=== PATIENT | male | born 1965 | race Caucasian/White ===

== ENCOUNTER 2018-03-05 00:32 | Emergency (ER) | payer BC ==
[2018-03-05] MEDS ORDERED: Dicyclomine 20 MG/2 ML SDV IM ONE (01:09)
[2018-03-05] MEDS ORDERED: Sodium Chloride 0.9% 1,000 ML IV ONE ×2 (01:09→02:49)
[2018-03-05] MEDS ORDERED: Ondansetron 4 MG/2 ML SDV IVPUSH ONE (01:09)
--- NOTE | 2018-03-05 01:11 | EDM.PDOC ---
ED HPI GENERAL MEDICAL PROBLEM - General Chief Complaint: Gastrointestinal Problem Stated Complaint: ABDOMINAL PAIN DIARRHEA Time Seen by Provider: 03/05/18 00:58 Source of Information: Reports: Patient, Family (Sister) History Limitations: Reports: No Limitations - History of Present Illness INITIAL COMMENTS - FREE TEXT/NARRATIVE: The patient states that he had chills without fever Friday night, 03/02/2018. He then developed watery diarrhea Friday morning, 03/03/2018, followed by a poor appetite and abdominal cramps yesterday, 03/03/2018. He developed nausea this evening, and while he states that he has not vomited, he has been dry heaving. No recent fever or urinary symptoms. The patient states that he took a dose of Pepto-Bismol and 2 tablets of Imodium yesterday morning, 03/03/2018, but none since. He states that it helped with his diarrhea a bit. No similarly ill contacts. No recent spoiled food. No recent antibiotics. No recent travel. No prior similar symptoms. The patient's PCP is Dr. Stephon Rojo. Abdomen Pain Score (Numeric/FACES): 6 - Related Data Allergies Allergy/AdvReac Type Severity Reaction Status Date / Time No Known Allergies Allergy Verified 03/05/18 00:41 Home Meds: Home Meds Cyanocobalamin (Vitamin B-12) [Vitamin B-12] 1,000 mcg PO DAILY 03/05/18 [ History] Levothyroxine [Synthroid] 88 mcg PO DAILY 03/05/18 [History] Lisinopril 10 mg PO DAILY 03/05/18 [History] Multivitamin [Multivitamins] 1 cap PO DAILY 03/05/18 [History] Ondansetron [Zofran ODT] 1 tab PO Q8H PRN #10 tab.dis 03/05/18 [Rx] Pantoprazole Sodium 40 mg PO DAILY 03/05/18 [History] Pravastatin Sodium 20 mg PO DAILY 03/05/18 [History] Ubidecarenone [Co Q-10] 200 mg PO DAILY 03/05/18 [History] Past Medical History HEENT History: Reports: Cataract Cardiovascular History: Reports: High Cholesterol, Hypertension Gastrointestinal History: Reports: GERD Endocrine/Metabolic History: Reports: Hypothyroidism - Past Surgical History HEENT Surgical History: Reports: Cataract Surgery GI Surgical History: Reports: Colonoscopy, EGD Social & Family History - Tobacco Use Smoking Status *Q: Never Smoker - Alcohol Use Alcohol Use History: No - Recreational Drug Use Recreational Drug Use: No - Living Situation & Occupation Living situation: Reports: Single, with Family Occupation: Employed (Self-employed) ED ROS GENERAL - Review of Systems Review Of Systems: ROS reveals no pertinent complaints other than HPI. ED EXAM, GI/ABD - Physical Exam Exam: See Below Exam Limited By: No Limitations General Appearance: Alert, WD/WN, Mild Distress (Looks uncomfortable. Occasional dry heaves.) Eyes: Bilateral: Normal Appearance, EOMI Ears: Normal External Exam, Hearing Grossly Normal Nose: Normal Inspection, No Blood Throat/Mouth: Normal Inspection, Normal Lips, Normal Voice, No Airway Compromise Head: Atraumatic, Normocephalic Neck: Normal Inspection, Full Range of Motion Respiratory/Chest: No Respiratory Distress, Lungs Clear, Normal Breath Sounds, No Accessory Muscle Use Cardiovascular: Normal Peripheral Pulses, Regular Rate, Rhythm, No Gallop, No JVD, No Murmur, No Rub GI/Abdominal Exam: Normal Bowel Sounds (Neither hyperactive nor hypoactive), Soft, Non-Tender, No Organomegaly, No Distention, No Abnormal Bruit, No Mass (Male) Exam: Deferred Rectal (Males) Exam: Deferred Extremities: Normal Inspection, Normal Range of Motion, No Pedal Edema, Normal Capillary Refill Neurological: Alert, Oriented, Normal Cognition, No Motor/Sensory Deficits Psychiatric: Normal Affect Skin Exam: Warm, Dry, Intact, Normal Color, No Rash Course - Vital Signs Last Recorded V/S: Last Vital Signs Temp 36.3 C 03/05/18 00:41 Pulse 94 03/05/18 00:41 Resp 16 03/05/18 00:41 BP 127/81 03/05/18 00:41 Pulse Ox 96 03/05/18 00:41 Orthostatic Blood Pressure [ 115/72 Standing] Orthostatic Blood Pressure [ 116/72 Sitting] Orthostatic Blood Pressure [ 105/67 Supine] - Orders/Labs/Meds Orders: Active Orders 24 hr Category Date Time Status Orthostatic Vital Signs [RC] STAT Care 03/05/18 01:09 Active Orthostatic Vital Signs [RC] STAT Care 03/05/18 02:25 Active CULTURE STOOL + SHIGATOX [RM] Stat Lab 03/05/18 01:11 Ordered NOROVIRUS GROUP 1 & 2 RT-PCR Stat Lab 03/05/18 01:12 Ordered ROTAVIRUS DIRECT ANTIGEN STOOL [OP] Stat Lab 03/05/18 01:11 Ordered WBC, STOOL [OP] Stat Lab 03/05/18 01:11 Ordered Labs: Laboratory Tests 03/05/18 03/05/18 03/05/18 Range/Units 01:15 01:15 01:25 WBC 15.88 H (4.23-9.07) K/mm3 RBC 5.12 (4.63-6.08) M/mm3 Hgb 16.1 (13.7-17.5) gm/L Hct 44.7 (40.1-51.0) % MCV 87.3 (79.0-92.2) fl MCH 31.4 (25.7-32.2) pg MCHC 36.0 H (32.2-35.5) g/dl RDW Std Deviation 38.8 (35.1-43.9) fL Plt Count 195 (163-337) K/mm3 MPV 9.4 (9.4-12.3) fl Neutrophils % (Manual) 80 H (40-60) % Band Neutrophils % 1 (0-10) % Lymphocytes % (Manual) 11 L (20-40) % Atypical Lymphs % 0 % Monocytes % (Manual) 5 (2-10) % Eosinophils % (Manual) 3 (0.8-7.0) % Basophils % (Manual) 0 L (0.2-1.2) Platelet Estimate Adequate RBC Morph Comment Normal Sodium 138 (136-145) mEq/L Potassium 3.6 (3.5-5.1) mEq/L Chloride 101 (98-107) mEq/L Carbon Dioxide 21 (21-32) mEq/L Anion Gap 19.6 H (5-15) BUN 16 (7-18) mg/dL Creatinine 1.1 (0.7-1.3) mg/dL Est Cr Clr Drug Dosing 88.78 mL/min Estimated GFR (MDRD) > 60 (>60) mL/min BUN/Creatinine Ratio 14.5 (14-18) Glucose 151 H (74-106) mg/dL Lactic Acid 1.1 (0.4-2.0) mmol/L Calcium 8.6 (8.5-10.1) mg/dL Magnesium 1.6 L (1.8-2.4) mg/dl Total Bilirubin 1.1 H (0.2-1.0) mg/dL AST 22 (15-37) U/L ALT 28 (16-63) U/L Alkaline Phosphatase 71 (46-116) U/L Total Protein 7.2 (6.4-8.2) g/dl Albumin 3.9 (3.4-5.0) g/dl Globulin 3.3 gm/dL Albumin/Globulin Ratio 1.2 (1-2) Lipase 180 (73-393) U/L Meds: Medications Discontinued Medications Generic Name Dose Route Start Last Admin Trade Name Freq PRN Reason Stop Dose Admin Dicyclomine HCl 20 mg 03/05/18 01:09 03/05/18 01:29 Bentyl IM 03/05/18 01:10 20 mg ONETIME ONE Administration Sodium Chloride 1,000 mls @ 999 mls/hr 03/05/18 01:09 03/05/18 01:26 Normal Saline IV 03/05/18 02:09 999 mls/hr ONETIME ONE Administration Magnesium Sulfate 2 gm/ Premix 50 mls @ 50 mls/hr 03/05/18 02:10 03/05/18 02: 17 IV 03/05/18 03:09 50 mls/hr ONETIME ONE Administration Sodium Chloride 1,000 mls @ 999 mls/hr 03/05/18 02:49 03/05/18 02:57 Normal Saline IV 03/05/18 03:49 999 mls/hr ONETIME ONE Administration Loperamide HCl 4 mg 03/05/18 02:49 03/05/18 02:57 Imodium PO 03/05/18 02:50 4 mg ONETIME STA Administration Ondansetron HCl 4 mg 03/05/18 01:09 03/05/18 01:27 Zofran IVPUSH 03/05/18 01:10 4 mg ONETIME ONE Administration - Re-Assessments/Exams Free Text/Narrative Re-Assessment/Exam: 03/05/18 01:10 The patient looks quite uncomfortable, and was retching during my interview. I have ordered IV fluid and Zofran, but until his nausea comes under control, I cannot give him loperamide. I have instead ordered 20 mg Bentyl IM to help with his abdominal cramps. 03/05/18 02:10 The patient's magnesium returned low at 1.6. I have ordered a 2 g Mg rider. 03/05/18 02:23 Orthostatics were not checked until after the patient had already received 782 mL NS. Nevertheless, he is considerably orthostatic. We will recheck orthostatics once he has finished 1 L IV fluid. 03/05/18 02:44 Following 1 L NS, the patient is no longer orthostatic. 03/05/18 02:50 Test results discussed with the patient. Although he is no longer orthostatic, he would like to receive a second liter of IV fluid. His nausea has improved following IV Zofran, therefore I will give him 4 mg loperamide. While the patient presented with a complaint of diarrhea, he has not been able to provide a stool sample while here, thus far. 03/05/18 03:57 The second liter of IV fluid has finished. The patient reports some continued abdominal cramps, but has still not been able to provide a stool sample. I will discharge him home with an e-prescription for Zofran, and a recommendation that he stay adequately hydrated and take [id number] loperamide, if needed. I would like him to follow-up with his PCP, Dr. Rojo, regarding his elevated blood glucose. At the very least, the patient has prediabetes, and needs further evaluation to make sure that he does not have diabetes. Departure - Departure Time of Disposition: 04:00 Disposition: Home, Self-Care 01 Condition: Fair Clinical Impression: Gastroenteritis, Hypomagnesemia, Hyperglycemia - Discharge Information Referrals: Stalin Rojo MD [Primary Care Provider] - Forms: ED Department Discharge Additional Instructions: You were seen in the emergency room for nausea, vomiting, diarrhea, and abdominal cramps. Workup in the ER included blood work and positional blood pressure checked. Unfortunately, you are not able to provide a stool sample for testing. The cause of your nausea, vomiting, diarrhea, and abdominal cramps is MOST LIKELY due to a virus. Unfortunately, there are no medicines to get rid of the virus - it will have to run its course. A prescription for the anti-nausea medicine the Zofran has been sent to the [facility] located in the [place] store. Dissolve one tablet of Zofran on your tongue up to every 8 hours, as needed for nausea/vomiting. Stay adequately hydrated. Gatorade or Powerade are best. You were started on the anti-diarrhea medicine Imodium (loperamide). This medicine is available [id number]. Take one tablet after each loose bowel movement, to a maximum of 8 tablets in a 24-hour period. Your workup found that your blood pressure dropped excessively between lying and standing, which resolved after you received IV fluid. Your magnesium level was found to be mildly low at 1.6. You were given IV magnesium in the ER. Your blood sugar was found to be elevated at 151. This indicates that you have a condition called prediabetes. You need further evaluation to make sure that you do not have diabetes. Please follow-up with Dr. Rojo in this regard. The remainder of your workup was unremarkable. If any other problems, please do not hesitate to return to the ER. - My Orders Last 24 Hours: My Active Orders 03/05/18 01:09 Orthostatic Vital Signs [RC] STAT 03/05/18 01:11 CULTURE STOOL + SHIGATOX [RM] Stat ROTAVIRUS DIRECT ANTIGEN STOOL [OP] Stat WBC, STOOL [OP] Stat 03/05/18 01:12 NOROVIRUS GROUP 1 & 2 RT-PCR Stat 03/05/18 02:25 Orthostatic Vital Signs [RC] STAT - Assessment/Plan Last 24 Hours: My Active Orders 03/05/18 01:09 Orthostatic Vital Signs [RC] STAT 03/05/18 01:11 CULTURE STOOL + SHIGATOX [RM] Stat ROTAVIRUS DIRECT ANTIGEN STOOL [OP] Stat WBC, STOOL [OP] Stat 03/05/18 01:12 NOROVIRUS GROUP 1 & 2 RT-PCR Stat 03/05/18 02:25 Orthostatic Vital Signs [RC] STAT
[2018-03-05] MEDS ORDERED: Magnesium Sulfate/Water 2 GM in Premix Bag 1 BAG IV ONE (02:10)
[2018-03-05] MEDS ORDERED: Loperamide 2 MG Cap PO STA (02:49)
== END 2018-03-05 04:16 | disposition home or self-care (01) ==
LOC: JD.ED 00:32
DX: K52.9 Noninfective gastroenteritis and colitis, unspecified (principal); E83.42 Hypomagnesemia; R73.9 Hyperglycemia, unspecified; E78.00 Pure hypercholesterolemia, unspecified; I10 Essential (primary) hypertension; E03.9 Hypothyroidism, unspecified; Z79.899 Other long term (current) drug therapy
CPT/HCPCS: 36415; 80053; 83605; 83690; 83735; 85025; 96361; 96365; 96372; 96375; 99284; A9270; J0500; J2405; J7040; J3475

== ENCOUNTER 2020-11-24 13:38 | Inpatient (IN) | payer BC ==
--- NOTE | 2020-11-24 14:06 | EDM.PDOC ---
ED HPI GENERAL MEDICAL PROBLEM - General Chief Complaint: Fever Stated Complaint: NAUSEA/HEADACHE/CHILLS/BODY ACHES Time Seen by Provider: 11/24/20 13:52 - History of Present Illness INITIAL COMMENTS - FREE TEXT/NARRATIVE: 55-year-old male presents the emergency room with fatigue nausea weight loss cough fever. Patient has had some nausea and some vomiting for the last 12 days. He has developed some abdominal discomfort associated with this. Nearly a week ago he developed a cough and fever. Patient states he is lost about 10 pounds during all this. The patient is not a smoker. He is not aware of any Covid exposure. Has not had any loss of taste or smell. However when he coughs he has radiating pain into his left lower quadrant. Patient does have some nausea at this time. He has a little bit of a headache but not bad. - Related Data Allergies Allergy/AdvReac Type Severity Reaction Status Date / Time No Known Allergies Allergy Verified 03/05/18 00:41 Home Meds: Home Meds Cyanocobalamin (Vitamin B-12) [Vitamin B-12] 1,000 mcg PO DAILY 03/05/18 [History] Levothyroxine [Synthroid] 88 mcg PO DAILY 03/05/18 [History] Lisinopril 10 mg PO DAILY 03/05/18 [History] Multivitamin [Multivitamins] 1 cap PO DAILY 03/05/18 [History] Ondansetron [Zofran ODT] 1 tab PO Q8H PRN #10 tab.dis 03/05/18 [Rx] Pantoprazole Sodium 40 mg PO DAILY 03/05/18 [History] Pravastatin Sodium 20 mg PO DAILY 03/05/18 [History] Ubidecarenone [Co Q-10] 200 mg PO DAILY 03/05/18 [History] Past Medical History HEENT History: Reports: Cataract Cardiovascular History: Reports: High Cholesterol, Hypertension Gastrointestinal History: Reports: GERD Endocrine/Metabolic History: Reports: Hypothyroidism - Past Surgical History HEENT Surgical History: Reports: Cataract Surgery GI Surgical History: Reports: Colonoscopy, EGD Social & Family History - Living Situation & Occupation Living situation: Reports: Single, with Family Occupation: Employed (Self-employed) ED ROS GENERAL - Review of Systems Review Of Systems: See Below Constitutional: Reports: Fever, Chills, Malaise, Weakness, Fatigue HEENT: Reports: No Symptoms Respiratory: Reports: Cough. Denies: Shortness of Breath, Wheezing, Sputum Cardiovascular: Reports: No Symptoms GI/Abdominal: Reports: Abdominal Pain, Nausea, Vomiting. Denies: Constipation, Diarrhea : Reports: No Symptoms Musculoskeletal: Reports: No Symptoms Skin: Reports: No Symptoms Neurological: Reports: No Symptoms Psychiatric: Reports: No Symptoms Hematologic/Lymphatic: Reports: No Symptoms Immunologic: Reports: No Symptoms ED EXAM, GENERAL - Physical Exam Exam: See Below Exam Limited By: No Limitations General Appearance: Alert, No Apparent Distress, Other (O2 saturation runs between 87 and 94% on room air) Eye Exam: Bilateral Eye: Normal Inspection, PERRL Ears: Normal External Exam, Normal Canal, Hearing Grossly Normal, Normal TMs Nose: Normal Inspection, Normal Mucosa, No Blood Throat/Mouth: Normal Inspection, Normal Lips, Normal Teeth, Normal Gums, Normal Oropharynx, Normal Voice, No Airway Compromise, Other (Semi-dry mucosa) Head: Atraumatic, Normocephalic Neck: Normal Inspection, Supple, Non-Tender, Full Range of Motion. No: Lymphadenopathy (L), Lymphadenopathy (R) Respiratory/Chest: No Respiratory Distress, Lungs Clear, Normal Breath Sounds Cardiovascular: Regular Rate, Rhythm, No Edema, No Murmur GI/Abdominal: Normal Bowel Sounds, Soft, Other (Comfort in the left lower quadrant almost like abdominal wall discomfort no rigidity rebound or guarding) Back Exam: Normal Inspection. No: CVA Tenderness (L), CVA Tenderness (R) Extremities: Normal Inspection, Normal Range of Motion, Non-Tender Neurological: Alert, Oriented, Normal Cognition Psychiatric: Normal Affect, Normal Mood Skin Exam: Warm, Dry, Intact Lymphatic: No Adenopathy Course - Vital Signs Last Recorded V/S: Last Vital Signs Temp 38.8 C H 11/24/20 13:50 Pulse 125 H 11/24/20 13:50 Resp 18 11/24/20 13:50 BP 111/71 11/24/20 13:50 Pulse Ox 92 L 11/24/20 13:50 - Orders/Labs/Meds Orders: Active Orders 24 hr Category Date Time Status ABG [RT Arterial Blood Gases, ABG] [RC] Click to Edit Care 11/24/20 14:20 Active CULTURE BLOOD [BC] Stat Lab 11/24/20 14:32 Received CULTURE BLOOD [BC] Stat Lab 11/24/20 14:41 Received Lactated Ringers [Ringers, Lactated] 1,000 ml Med 11/24/20 14:15 Active IV ASDIRECTED Blood Culture x2 Reflex Set [OM.PC] Stat Oth 11/24/20 14:07 Ordered Isolation [COMM] Routine Oth 11/24/20 14:09 Ordered Medication Orders Lactated Ringer's (Ringers, Lactated) 1,000 mls @ 150 mls/hr IV ASDIRECTED BERTHA Last Admin: 11/24/20 14:24 Dose: 150 mls/hr Documented by: ROS Labs: Laboratory Tests 11/24/20 11/24/20 11/24/20 Range/Units 14:08 14:12 14:12 WBC (4.23-9.07) K/mm3 RBC (4.63-6.08) M/mm3 Hgb (13.7-17.5) gm/dl Hct (40.1-51.0) % MCV (79.0-92.2) fl MCH (25.7-32.2) pg MCHC (32.2-35.5) g/dl RDW Std Deviation (35.1-43.9) fL Plt Count (163-337) K/mm3 MPV (9.4-12.3) fl Neut % (Auto) (34.0-67.9) % Lymph % (Auto) (21.8-53.1) % [place] % (Auto) (5.3-12.2) % Eos % (Auto) (0.8-7.0) Baso % (Auto) (0.1-1.2) % Neut # (Auto) (1.78-5.38) K/mm3 Lymph # (Auto) (1.32-3.57) K/mm3 [place] # (Auto) (0.30-0.82) K/mm3 Eos # (Auto) (0.04-0.54) K/mm3 Baso # (Auto) (0.01-0.08) K/mm3 Manual Slide Review PT 12.4 H (9.7-12.0) SECONDS INR 1.16 APTT 30.9 (21.7-31.4) SECONDS D-Dimer, Quantitative 1.51 H (0.19-0.50) mg/L Sodium 132 L (136-145) mEq/L Potassium 3.9 (3.5-5.1) mEq/L Chloride 97 L (98-107) mEq/L Carbon Dioxide 23 (21-32) mEq/L Anion Gap 15.9 H (5-15) BUN 22 H (7-18) mg/dL Creatinine 1.6 H (0.7-1.3) mg/dL Est Cr Clr Drug Dosing 58.95 mL/min Estimated GFR (MDRD) 45 (>60) mL/min BUN/Creatinine Ratio 13.8 L (14-18) Glucose 113 H (74-106) mg/dL Lactic Acid (0.4-2.0) mmol/L Calcium 9.0 (8.5-10.1) mg/dL Ferritin 614 H (26-388) ng/ml Total Bilirubin 1.0 (0.2-1.0) mg/dL AST 29 (15-37) U/L ALT 24 (16-63) U/L Alkaline Phosphatase 69 (46-116) U/L Lactate Dehydrogenase 237 H (85-227) U/L Troponin I < 0.017 (0.00-0.056) ng/mL C-Reactive Protein 16.2 H* (<1.0) mg/dL Total Protein 7.8 (6.4-8.2) g/dl Albumin 3.5 (3.4-5.0) g/dl Globulin 4.3 gm/dL Albumin/Globulin Ratio 0.8 L (1-2) Influenza Type A RNA (NEGATIVE) Influenza Type B RNA (NEGATIVE) SARS-CoV-2 RNA (JOSSY) (NEGATIVE) 11/24/20 11/24/20 11/24/20 Range/Units 14:12 14:22 14:28 WBC 9.58 H (4.23-9.07) K/mm3 RBC 4.84 (4.63-6.08) M/mm3 Hgb 15.0 (13.7-17.5) gm/dl Hct 43.2 (40.1-51.0) % MCV 89.3 (79.0-92.2) fl MCH 31.0 (25.7-32.2) pg MCHC 34.7 (32.2-35.5) g/dl RDW Std Deviation 37.1 (35.1-43.9) fL Plt Count 212 (163-337) K/mm3 MPV 9.6 (9.4-12.3) fl Neut % (Auto) 77.1 H (34.0-67.9) % Lymph % (Auto) 9.2 L (21.8-53.1) % [place] % (Auto) 13.3 H (5.3-12.2) % Eos % (Auto) 0 L (0.8-7.0) Baso % (Auto) 0.1 (0.1-1.2) % Neut # (Auto) 7.39 H (1.78-5.38) K/mm3 Lymph # (Auto) 0.88 L (1.32-3.57) K/mm3 [place] # (Auto) 1.27 H (0.30-0.82) K/mm3 Eos # (Auto) 0.00 L (0.04-0.54) K/mm3 Baso # (Auto) 0.01 (0.01-0.08) K/mm3 Manual Slide Review Abnormal smear PT (9.7-12.0) SECONDS INR APTT (21.7-31.4) SECONDS D-Dimer, Quantitative (0.19-0.50) mg/L Sodium (136-145) mEq/L Potassium (3.5-5.1) mEq/L Chloride (98-107) mEq/L Carbon Dioxide (21-32) mEq/L Anion Gap (5-15) BUN (7-18) mg/dL Creatinine (0.7-1.3) mg/dL Est Cr Clr Drug Dosing mL/min Estimated GFR (MDRD) (>60) mL/min BUN/Creatinine Ratio (14-18) Glucose (74-106) mg/dL Lactic Acid 1.4 (0.4-2.0) mmol/L Calcium (8.5-10.1) mg/dL Ferritin (26-388) ng/ml Total Bilirubin (0.2-1.0) mg/dL AST (15-37) U/L ALT (16-63) U/L Alkaline Phosphatase (46-116) U/L Lactate Dehydrogenase (85-227) U/L Troponin I (0.00-0.056) ng/mL C-Reactive Protein (<1.0) mg/dL Total Protein (6.4-8.2) g/dl Albumin (3.4-5.0) g/dl Globulin gm/dL Albumin/Globulin Ratio (1-2) Influenza Type A RNA Negative (NEGATIVE) Influenza Type B RNA Negative (NEGATIVE) SARS-CoV-2 RNA (JOSSY) Positive H (NEGATIVE) Meds: Medications Generic Name Dose Route Start Last Admin Trade Name Freq PRN Reason Stop Dose Admin Lactated Ringer's 1,000 mls @ 150 mls/hr 11/24/20 14:15 11/24/20 14:24 Ringers, Lactated IV 150 mls/hr ASDIRECTED BERTHA Administration Discontinued Medications Generic Name Dose Route Start Last Admin Trade Name Freq PRN Reason Stop Dose Admin Ondansetron HCl 4 mg 11/24/20 14:19 11/24/20 14:28 Zofran IVPUSH 11/24/20 14:20 4 mg ONETIME ONE Administration - Re-Assessments/Exams Free Text/Narrative Re-Assessment/Exam: 11/24/20 15:39 Patient's chest x-ray shows some possible mild pneumonia in the right upper lobe. His Covid is positive D-dimer is elevated at 1.51 ferritin is elevated LDH is elevated and C-reactive protein is quite elevated he is moderately dehydrated at this point less so than I would expect with a 10 pound weight loss. I discussed the situation with the patient and with Dr. Moseley and the patient will be admitted. Departure - Departure Time of Disposition: 15:40 Disposition: Admitted As Inpatient 66 Clinical Impression: Lab test positive for detection of COVID-19 virus, Coronavirus infection - Discharge Information Referrals: Stalin Rojo MD [Primary Care Provider] - Forms: ED Department Discharge Sepsis Event Note (ED) - Focused Exam Vital Signs: Vital Signs Temp Pulse Resp BP Pulse Ox 11/24/20 13:50 38.8 C H 125 H 18 111/71 92 L - My Orders Last 24 Hours: My Active Orders 11/24/20 14:07 Blood Culture x2 Reflex Set [OM.PC] Stat 11/24/20 14:09 Isolation [COMM] Routine 11/24/20 14:15 Lactated Ringers [Ringers, Lactated] 1,000 ml IV ASDIRECTED 11/24/20 14:20 ABG [RT Arterial Blood Gases, ABG] [RC] Click to Edit 11/24/20 14:32 CULTURE BLOOD [BC] Stat 11/24/20 14:41 CULTURE BLOOD [BC] Stat - Assessment/Plan Last 24 Hours: My Active Orders 11/24/20 14:07 Blood Culture x2 Reflex Set [OM.PC] Stat 11/24/20 14:09 Isolation [COMM] Routine 11/24/20 14:15 Lactated Ringers [Ringers, Lactated] 1,000 ml IV ASDIRECTED 11/24/20 14:20 ABG [RT Arterial Blood Gases, ABG] [RC] Click to Edit 11/24/20 14:32 CULTURE BLOOD [BC] Stat 11/24/20 14:41 CULTURE BLOOD [BC] Stat
[2020-11-24] MEDS ORDERED: Lactated Ringers 1,000 ML IV SCH (14:15)
[2020-11-24] MEDS ORDERED: Ondansetron 4 MG/2 ML SDV IVPUSH ONE (14:19)
--- NOTE | 2020-11-24 14:52 | CR ---
Chest: Portable view of the chest was obtained. Comparison: No previous chest imaging is available. Focal increased density within the right upper chest is seen most likely representing small pneumonia. Lungs otherwise are clear. Heart size and mediastinum are normal. Bony structures are grossly intact. Impression: 1. Findings suspicious for minimal area of pneumonia within the right upper chest. Diagnostic code #3
[2020-11-24 15:25] LABS: CORONAVIRUS COVID-19 NAA POSITIVE (NEGATIVE)
[2020-11-24] MEDS ORDERED: oxyCODONE 5 MG Tab PO PRN (16:06)
[2020-11-24] MEDS ORDERED: Ondansetron 4 MG Tab.DIS PO PRN (16:06)
[2020-11-24] MEDS ORDERED: Docusate Sodium 100 MG Cap PO PRN (16:06)
[2020-11-24] MEDS ORDERED: Temazepam 15 MG Cap PO PRN (16:06)
[2020-11-24] MEDS ORDERED: Albuterol/Ipratropium 3.0-0.5 MG/3 ML Neb Soln NEB PRN (16:06)
[2020-11-24] MEDS ORDERED: Acetaminophen 325 MG Tab PO PRN (16:06)
--- NOTE | 2020-11-24 16:19 | PCM.HP.2 ---
H&P History of Present Illness - General Date of Service: 11/24/20 Admit Problem/Dx: Admission Diagnosis/Problem Admission Diagnosis/Problem Hypoxia Source of Information: Patient History Limitations: Reports: No Limitations - History of Present Illness Initial Comments - Free Text/Narative: The patient was admitted through the emergency department for COVID-19 associated pneumonia. Onset of Symptoms: Reports: Gradual Duration of Symptoms: Reports: Day(s): (14) Location: Reports: Generalized Severity: Moderate Improves with: Reports: Medication, Rest Worsens with: Reports: None Associated Symptoms: Reports: Cough, Fever/Chills, Malaise, Nausea/Vomiting, Shortness of Breath, Weakness Other HPI/Comments: The patient is a 55-year-old gentleman who has presented to the emergency department with complaint of fatigue, weakness along with fever and chills for the past 2 weeks. In the emergency department the patient had a fever of 103.5 Fahrenheit. The patient also says that he has had nausea associated with his symptoms. The patient had been evaluated as an outpatient at [facility] and they had read recommended that he go to the emergency department for further evaluation. Also reports that he has had fever and chills to accompany this and he says that his symptoms have been getting worse. The patient has a history of hypertension, hypothyroidism and he has been taking medication for these. The patient does not use tobacco. No alcohol use. The patient has not been exposed to a known source of infection. - Related Data Allergies/Adverse Reactions: Allergies Allergy/AdvReac Type Severity Reaction Status Date / Time No Known Allergies Allergy Verified 03/05/18 00:41 Home Medications: Home Meds Cyanocobalamin (Vitamin B-12) [Vitamin B-12] 1,000 mcg PO DAILY 03/05/18 [Hi story] Lisinopril 10 mg PO DAILY 03/05/18 [History] Multivitamin [Multivitamins] 1 cap PO DAILY 03/05/18 [History] Pantoprazole Sodium 40 mg PO DAILY 03/05/18 [History] Pravastatin Sodium 20 mg PO DAILY 03/05/18 [History] Ubidecarenone [Co Q-10] 200 mg PO DAILY 03/05/18 [History] Cholecalciferol (Vitamin D3) [Vitamin D3] 1 tab PO DAILY 11/24/20 [History] Fexofenadine HCl [Sole Allergy] 1 tab PO DAILY 11/24/20 [History] Levothyroxine 1 tab PO DAILY 11/24/20 [History] Past Medical History HEENT History: Reports: Cataract Cardiovascular History: Reports: High Cholesterol, Hypertension Respiratory History: Reports: None Gastrointestinal History: Reports: GERD Genitourinary History: Reports: None Musculoskeletal History: Reports: None Neurological History: Reports: None Psychiatric History: Reports: None Endocrine/Metabolic History: Reports: Hypothyroidism Hematologic History: Reports: None Immunologic History: Reports: None Oncologic (Cancer) History: Reports: None Dermatologic History: Reports: None - Past Surgical History HEENT Surgical History: Reports: Cataract Surgery GI Surgical History: Reports: Colonoscopy, EGD Social & Family History - Tobacco Use Tobacco Use Status *Q: Never Tobacco User Second Hand Smoke Exposure: No - Caffeine Use Caffeine Use: Reports: Coffee - Alcohol Use Alcohol Use History: No Alcohol Use in Last Twelve Months: No - Recreational Drug Use Recreational Drug Use: No - Living Situation & Occupation Living situation: Reports: Single, with Family Occupation: Employed (Self-employed) H&P Review of Systems - Review of Systems: Review Of Systems: See Below General: Reports: Fever, Chills, Malaise, Weakness, Weight Loss HEENT: Reports: Headaches, Sinus Congestion Pulmonary: Reports: Shortness of Breath, Cough. Denies: Sputum Cardiovascular: Reports: Dyspnea on Exertion Gastrointestinal: Reports: Anorexia, Nausea Genitourinary: Reports: No Symptoms Musculoskeletal: Reports: No Symptoms Skin: Reports: No Symptoms Psychiatric: Reports: No Symptoms Neurological: Reports: No Symptoms Hematologic/Lymphatic: Reports: No Symptoms Immunologic: Reports: No Symptoms Exam - Exam Exam: See Below - Vital Signs Vital Signs: Last Vital Signs Temp 38.8 C H 11/24/20 13:50 Pulse 125 H 11/24/20 13:50 Resp 18 11/24/20 13:50 BP 111/71 11/24/20 13:50 Pulse Ox 92 L 11/24/20 13:50 Weight: 88.904 kg - Exam Quality Assessment: No: Supplemental Oxygen General: Alert, Oriented, Cooperative, Mild Distress HEENT: Conjunctiva Clear, EACs Clear, EOMI, Hearing Intact, Pupils Equal, Pupils Reactive. No: Mucosa Moist & [place] (Dry) Neck: Supple, Trachea Midline Lungs: Rales (Bibasilar), Other (Tachypnea). No: Normal Respiratory Effort Cardiovascular: Regular Rhythm, Normal S1, Normal S2. No: Regular Rate (Tachycardia) GI/Abdominal Exam: Normal Bowel Sounds, Soft, Non-Tender, No Distention (Male) Exam: Deferred Rectal (Males) Exam: Deferred Back Exam: Normal Inspection, Full Range of Motion Extremities: Normal Inspection, No Pedal Edema Skin: Dry, Intact, Other (Skin hot) Neurological: Cranial Nerves Intact Neuro Extensive - Mental Status: Alert, Oriented x3, Normal Mood/Affect, Memory Intact Psychiatric: Alert, Normal Affect, Normal Mood - Patient Data Lab Results Last 24 hrs: Laboratory Results - last 24 hr 11/24/20 11/24/20 11/24/20 Range/Units 14:08 14:12 14:12 WBC (4.23-9.07) K/mm3 RBC (4.63-6.08) M/mm3 Hgb (13.7-17.5) gm/dl Hct (40.1-51.0) % MCV (79.0-92.2) fl MCH (25.7-32.2) pg MCHC (32.2-35.5) g/dl RDW Std Deviation (35.1-43.9) fL Plt Count (163-337) K/mm3 MPV (9.4-12.3) fl Neut % (Auto) (34.0-67.9) % Lymph % (Auto) (21.8-53.1) % Oliver % (Auto) (5.3-12.2) % Eos % (Auto) (0.8-7.0) Baso % (Auto) (0.1-1.2) % Neut # (Auto) (1.78-5.38) K/mm3 Lymph # (Auto) (1.32-3.57) K/mm3 Oliver # (Auto) (0.30-0.82) K/mm3 Eos # (Auto) (0.04-0.54) K/mm3 Baso # (Auto) (0.01-0.08) K/mm3 Manual Slide Review PT 12.4 H (9.7-12.0) SECONDS INR 1.16 APTT 30.9 (21.7-31.4) SECONDS D-Dimer, Quantitative 1.51 H (0.19-0.50) mg/L Sodium 132 L (136-145) mEq/L Potassium 3.9 (3.5-5.1) mEq/L Chloride 97 L (98-107) mEq/L Carbon Dioxide 23 (21-32) mEq/L Anion Gap 15.9 H (5-15) BUN 22 H (7-18) mg/dL Creatinine 1.6 H (0.7-1.3) mg/dL Est Cr Clr Drug Dosing 58.95 mL/min Estimated GFR (MDRD) 45 (>60) mL/min BUN/Creatinine Ratio 13.8 L (14-18) Glucose 113 H (74-106) mg/dL Lactic Acid (0.4-2.0) mmol/L Calcium 9.0 (8.5-10.1) mg/dL Ferritin 614 H (26-388) ng/ml Total Bilirubin 1.0 (0.2-1.0) mg/dL AST 29 (15-37) U/L ALT 24 (16-63) U/L Alkaline Phosphatase 69 (46-116) U/L Lactate Dehydrogenase 237 H (85-227) U/L Troponin I < 0.017 (0.00-0.056) ng/mL C-Reactive Protein 16.2 H* (<1.0) mg/dL Total Protein 7.8 (6.4-8.2) g/dl Albumin 3.5 (3.4-5.0) g/dl Globulin 4.3 gm/dL Albumin/Globulin Ratio 0.8 L (1-2) Influenza Type A RNA (NEGATIVE) Influenza Type B RNA (NEGATIVE) SARS-CoV-2 RNA (JOSSY) (NEGATIVE) 11/24/20 11/24/20 11/24/20 Range/Units 14:12 14:22 14:28 WBC 9.58 H (4.23-9.07) K/mm3 RBC 4.84 (4.63-6.08) M/mm3 Hgb 15.0 (13.7-17.5) gm/dl Hct 43.2 (40.1-51.0) % MCV 89.3 (79.0-92.2) fl MCH 31.0 (25.7-32.2) pg MCHC 34.7 (32.2-35.5) g/dl RDW Std Deviation 37.1 (35.1-43.9) fL Plt Count 212 (163-337) K/mm3 MPV 9.6 (9.4-12.3) fl Neut % (Auto) 77.1 H (34.0-67.9) % Lymph % (Auto) 9.2 L (21.8-53.1) % Oliver % (Auto) 13.3 H (5.3-12.2) % Eos % (Auto) 0 L (0.8-7.0) Baso % (Auto) 0.1 (0.1-1.2) % Neut # (Auto) 7.39 H (1.78-5.38) K/mm3 Lymph # (Auto) 0.88 L (1.32-3.57) K/mm3 Oliver # (Auto) 1.27 H (0.30-0.82) K/mm3 Eos # (Auto) 0.00 L (0.04-0.54) K/mm3 Baso # (Auto) 0.01 (0.01-0.08) K/mm3 Manual Slide Review Abnormal smear PT (9.7-12.0) SECONDS INR APTT (21.7-31.4) SECONDS D-Dimer, Quantitative (0.19-0.50) mg/L Sodium (136-145) mEq/L Potassium (3.5-5.1) mEq/L Chloride (98-107) mEq/L Carbon Dioxide (21-32) mEq/L Anion Gap (5-15) BUN (7-18) mg/dL Creatinine (0.7-1.3) mg/dL Est Cr Clr Drug Dosing mL/min Estimated GFR (MDRD) (>60) mL/min BUN/Creatinine Ratio (14-18) Glucose (74-106) mg/dL Lactic Acid 1.4 (0.4-2.0) mmol/L Calcium (8.5-10.1) mg/dL Ferritin (26-388) ng/ml Total Bilirubin (0.2-1.0) mg/dL AST (15-37) U/L ALT (16-63) U/L Alkaline Phosphatase (46-116) U/L Lactate Dehydrogenase (85-227) U/L Troponin I (0.00-0.056) ng/mL C-Reactive Protein (<1.0) mg/dL Total Protein (6.4-8.2) g/dl Albumin (3.4-5.0) g/dl Globulin gm/dL Albumin/Globulin Ratio (1-2) Influenza Type A RNA Negative (NEGATIVE) Influenza Type B RNA Negative (NEGATIVE) SARS-CoV-2 RNA (JOSSY) Positive H (NEGATIVE) Result Diagrams: 11/24/20 14:22 11/24/20 14:12 Sepsis Event Note - Evaluation Sepsis Screening Result: Possible Sepsis Risk - Focused Exam Vital Signs: Vital Signs Temp Pulse Resp BP Pulse Ox 11/24/20 13:50 38.8 C H 125 H 18 111/71 92 L - Problem List (1) Acute respiratory failure due to COVID-19 SNOMED Code(s): 521699074 ICD Code: U07.1 - COVID-19; J96.00 - ACUTE RESPIRATORY FAILURE, UNSP W HYPOXIA OR HYPERCAPNIA Status: Acute Priority: High Current Visit: Yes (2) Pneumonia due to COVID-19 virus SNOMED Code(s): 975206618359453323 ICD Code: U07.1 - COVID-19; J12.89 - OTHER VIRAL PNEUMONIA Status: Acute Priority: High Current Visit: Yes (3) Hypertension SNOMED Code(s): 81587417 ICD Code: I10 - ESSENTIAL (PRIMARY) HYPERTENSION Status: Acute Current Visit: Yes Qualifiers: Hypertension type: essential hypertension Qualified Code(s): I10 - Essential (primary) hypertension (4) Hyponatremia SNOMED Code(s): 28656755 ICD Code: E87.1 - HYPO-OSMOLALITY AND HYPONATREMIA Status: Acute Priority: High Current Visit: Yes Problem List Initiated/Reviewed/Updated: Yes Orders Last 24hrs: Active Orders 24 hr Category Date Time Status Patient Status [ADT] Routine ADT 11/24/20 15:56 Active ABG [RT Arterial Blood Gases, ABG] [RC] Click to Edit Care 11/24/20 14:20 Active Cardiac Monitoring [RC] CONTINUOUS Care 11/24/20 16:07 Ordered Pulse Oximetry [RC] CONTINUOUS Care 11/24/20 16:07 Ordered RT Aerosol Therapy [RC] ASDIRECTED Care 11/24/20 16:12 Ordered Up ad Brenda [RC] ASDIRECTED Care 11/24/20 16:06 Ordered VTE/DVT Education [RC] PER UNIT ROUTINE Care 11/24/20 16:06 Ordered Vital Signs [RC] Q4H Care 11/24/20 16:06 Ordered Heart Healthy Diet [DIET] Diet 11/24/20 Dinner Ordered C-REACTIVE PROTEIN [CHEM] AM Lab 11/25/20 05:11 Ordered CBC WITH AUTO DIFF [HEME] AM Lab 11/25/20 05:11 Ordered COMPREHENSIVE METABOLIC PN,CMP [CHEM] AM Lab 11/25/20 05:11 Ordered CULTURE BLOOD [BC] Stat Lab 11/24/20 14:32 Received CULTURE BLOOD [BC] Stat Lab 11/24/20 14:41 Received Acetaminophen [TylenoL] Med 11/24/20 16:06 Ordered 650 mg PO Q4H PRN Albuterol/Ipratropium [DuoNeb 3.0-0.5 MG/3 ML] Med 11/24/20 16:06 Ordered 3 ml NEB Q4H PRN Docusate Sodium [Colace] Med 11/24/20 16:06 Ordered 100 mg PO BID PRN Enoxaparin [Lovenox] Med 11/24/20 16:15 Ordered 40 mg SUBCUT DAILY Lactated Ringers [Ringers, Lactated] 1,000 ml Med 11/24/20 14:15 Active IV ASDIRECTED Ondansetron [Zofran ODT] Med 11/24/20 16:06 Ordered 4 mg PO Q6H PRN Sodium Chloride 0.9% @ 125 MLS/HR (1000ml) Med 11/24/20 16:15 Ordered Sodium Chloride 0.9% [Normal Saline] 1,000 ml IV ASDIRECTED Temazepam [Restoril] Med 11/24/20 16:06 Ordered 15 mg PO BEDTIME PRN oxyCODONE Med 11/24/20 16:06 Ordered 5 mg PO Q4H PRN Blood Culture x2 Reflex Set [OM.PC] Stat Oth 11/24/20 14:07 Ordered Isolation [COMM] Routine Oth 11/24/20 14:09 Ordered Resuscitation Status Routine Resus Stat 11/24/20 16:06 Ordered Medication Orders Acetaminophen (Tylenol) 650 mg PO Q4H PRN PRN Reason: Pain (Mild 1-3)/fever Albuterol/Ipratropium (Duoneb 3.0-0.5 Mg/3 Ml) 3 ml NEB Q4H PRN PRN Reason: Shortness Of Breath/wheezing Docusate Sodium (Colace) 100 mg PO BID PRN PRN Reason: Constipation Enoxaparin Sodium (Lovenox) 40 mg SUBCUT DAILY [facility], [facility]1983 Lactated Ringer's (Ringers, Lactated) 1,000 mls @ 150 mls/hr IV ASDIRECTED [facility], 1928–1983 Last Admin: 11/24/20 14:24 Dose: 150 mls/hr Documented by: ROS Sodium Chloride (Normal Saline) 1,000 mls @ 125 mls/hr IV ASDIRECTED [facility], [facility]–1983 Ondansetron HCl (Zofran Odt) 4 mg PO Q6H PRN PRN Reason: nausea, able to take PO Oxycodone HCl (Oxycodone) 5 mg PO Q4H PRN PRN Reason: Pain (moderate 4-6) Temazepam (Restoril) 15 mg PO BEDTIME PRN PRN Reason: Sleep Assessment/Plan Comment:: The patient is a 55-year-old gentleman who has been ill for at least 2 weeks. The patient is currently outside the window for consideration of remdesivir for his COVID-19 infection. He will be admitted as an inpatient. The patient will also be kept on oxygen support to help keep his oxygen saturations between 90 and 92%. I have also ordered that the patient receive 6 mg of dexamethasone IV daily. The patient will also have IV normal saline at 125 mL/h. This should help to correct his metabolic imbalance. Patient will also because of his hyper tension have a heart healthy diet. He is also been ordered to continue his home medications. The patient will also be anticoagulated with Lovenox at 40 mg subcutaneous daily. I have also ordered repeat laboratory studies in the morning. I have also ordered a magnesium level says the patient does have a history of hypomagnesemia. The patient also has been encouraged to ambulate. We will follow up with the blood cultures that have been previously obtained. - Mortality Measure Prognosis:: Good
[2020-11-24] MEDS ORDERED: Dexamethasone 4 MG/ML 5 ML MDV IV SCH (16:30)
[2020-11-24] MEDS: Enoxaparin 40 MG/0.4 ML Syringe SUBCUT SCH (18:28)
[2020-11-24] MEDS: cefTRIAXone 2 GM in Sodium Chloride 0.9% 100 ML IV SCH (18:28)
[2020-11-24] MEDS: Sodium Chloride 0.9% 1,000 ML IV SCH (21:00)
[2020-11-25] MEDS: Sodium Chloride 0.9% 1,000 ML IV SCH ×3 (05:19→22:27)
[2020-11-25] MEDS: Levothyroxine 75 MCG Tab PO SCH (05:19)
[2020-11-25] MEDS: Pantoprazole 40 MG Tab.CR PO SCH (06:39)
--- NOTE | 2020-11-25 07:44 | PCM.PN ---
- General Info Date of Service: 11/25/20 Admission Dx/Problem (Free Text): Admission Diagnosis/Problem Admission Diagnosis/Problem Hypoxia, COVID-19 pneumonia Subjective Update: The patient is a 55-year-old gentleman who was admitted yesterday secondary to COVID-19 pneumonia. The patient has been placed on dexamethasone 6 mg IV daily. The patient is not on oxygen currently and has not been requiring it. The patient today says that he feels much better. The patient has been able to tolerate his diet. He is denied any fever or chills. The patient says that he had sweats overnight drenching the bed. Functional Status: Reports: Pain Controlled, Tolerating Diet - Review of Systems General: Reports: Weakness, Fatigue HEENT: Reports: No Symptoms Pulmonary: Reports: Cough Cardiovascular: Reports: No Symptoms Gastrointestinal: Reports: No Symptoms Genitourinary: Reports: No Symptoms Musculoskeletal: Reports: No Symptoms Skin: Reports: No Symptoms Neurological: Reports: No Symptoms Psychiatric: Reports: No Symptoms - Patient Data Vitals - Most Recent: Last Vital Signs Temp 36.6 C 11/25/20 03:17 Pulse 77 11/25/20 03:17 Resp 18 11/25/20 03:17 BP 116/73 11/25/20 03:17 Pulse Ox 97 11/25/20 03:17 Weight - Most Recent: 88.995 kg I&O - Last 24 Hours: Intake & Output 11/24/20 11/25/20 11/25/20 22:59 06:59 14:59 Intake Total 507 1373 Output Total 850 Balance 507 523 Lab Results Last 24 Hours: Laboratory Results - last 24 hr 11/24/20 11/24/20 11/24/20 Range/Units 14:08 14:12 14:12 WBC (4.23-9.07) K/mm3 RBC (4.63-6.08) M/mm3 Hgb (13.7-17.5) gm/dl Hct (40.1-51.0) % MCV (79.0-92.2) fl MCH (25.7-32.2) pg MCHC (32.2-35.5) g/dl RDW Std Deviation (35.1-43.9) fL Plt Count (163-337) K/mm3 MPV (9.4-12.3) fl Neut % (Auto) (34.0-67.9) % Lymph % (Auto) (21.8-53.1) % [place] % (Auto) (5.3-12.2) % Eos % (Auto) (0.8-7.0) Baso % (Auto) (0.1-1.2) % Neut # (Auto) (1.78-5.38) K/mm3 Lymph # (Auto) (1.32-3.57) K/mm3 [place] # (Auto) (0.30-0.82) K/mm3 Eos # (Auto) (0.04-0.54) K/mm3 Baso # (Auto) (0.01-0.08) K/mm3 Manual Slide Review PT 12.4 H (9.7-12.0) SECONDS INR 1.16 APTT 30.9 (21.7-31.4) SECONDS D-Dimer, Quantitative 1.51 H (0.19-0.50) mg/L Sodium 132 L (136-145) mEq/L Potassium 3.9 (3.5-5.1) mEq/L Chloride 97 L (98-107) mEq/L Carbon Dioxide 23 (21-32) mEq/L Anion Gap 15.9 H (5-15) BUN 22 H (7-18) mg/dL Creatinine 1.6 H (0.7-1.3) mg/dL Est Cr Clr Drug Dosing 58.95 mL/min Estimated GFR (MDRD) 45 (>60) mL/min BUN/Creatinine Ratio 13.8 L (14-18) Glucose 113 H (74-106) mg/dL Lactic Acid (0.4-2.0) mmol/L Calcium 9.0 (8.5-10.1) mg/dL Magnesium (1.8-2.4) mg/dl Ferritin 614 H (26-388) ng/ml Total Bilirubin 1.0 (0.2-1.0) mg/dL AST 29 (15-37) U/L ALT 24 (16-63) U/L Alkaline Phosphatase 69 (46-116) U/L Lactate Dehydrogenase 237 H (85-227) U/L Troponin I < 0.017 (0.00-0.056) ng/mL C-Reactive Protein 16.2 H* (<1.0) mg/dL Total Protein 7.8 (6.4-8.2) g/dl Albumin 3.5 (3.4-5.0) g/dl Globulin 4.3 gm/dL Albumin/Globulin Ratio 0.8 L (1-2) Influenza Type A RNA (NEGATIVE) Influenza Type B RNA (NEGATIVE) SARS-CoV-2 RNA (JOSSY) (NEGATIVE) 11/24/20 11/24/20 11/24/20 Range/Units 14:12 14:22 14:28 WBC 9.58 H (4.23-9.07) K/mm3 RBC 4.84 (4.63-6.08) M/mm3 Hgb 15.0 (13.7-17.5) gm/dl Hct 43.2 (40.1-51.0) % MCV 89.3 (79.0-92.2) fl MCH 31.0 (25.7-32.2) pg MCHC 34.7 (32.2-35.5) g/dl RDW Std Deviation 37.1 (35.1-43.9) fL Plt Count 212 (163-337) K/mm3 MPV 9.6 (9.4-12.3) fl Neut % (Auto) 77.1 H (34.0-67.9) % Lymph % (Auto) 9.2 L (21.8-53.1) % [place] % (Auto) 13.3 H (5.3-12.2) % Eos % (Auto) 0 L (0.8-7.0) Baso % (Auto) 0.1 (0.1-1.2) % Neut # (Auto) 7.39 H (1.78-5.38) K/mm3 Lymph # (Auto) 0.88 L (1.32-3.57) K/mm3 [place] # (Auto) 1.27 H (0.30-0.82) K/mm3 Eos # (Auto) 0.00 L (0.04-0.54) K/mm3 Baso # (Auto) 0.01 (0.01-0.08) K/mm3 Manual Slide Review Abnormal smear PT (9.7-12.0) SECONDS INR APTT (21.7-31.4) SECONDS D-Dimer, Quantitative (0.19-0.50) mg/L Sodium (136-145) mEq/L Potassium (3.5-5.1) mEq/L Chloride (98-107) mEq/L Carbon Dioxide (21-32) mEq/L Anion Gap (5-15) BUN (7-18) mg/dL Creatinine (0.7-1.3) mg/dL Est Cr Clr Drug Dosing mL/min Estimated GFR (MDRD) (>60) mL/min BUN/Creatinine Ratio (14-18) Glucose (74-106) mg/dL Lactic Acid 1.4 (0.4-2.0) mmol/L Calcium (8.5-10.1) mg/dL Magnesium (1.8-2.4) mg/dl Ferritin (26-388) ng/ml Total Bilirubin (0.2-1.0) mg/dL AST (15-37) U/L ALT (16-63) U/L Alkaline Phosphatase (46-116) U/L Lactate Dehydrogenase (85-227) U/L Troponin I (0.00-0.056) ng/mL C-Reactive Protein (<1.0) mg/dL Total Protein (6.4-8.2) g/dl Albumin (3.4-5.0) g/dl Globulin gm/dL Albumin/Globulin Ratio (1-2) Influenza Type A RNA Negative (NEGATIVE) Influenza Type B RNA Negative (NEGATIVE) SARS-CoV-2 RNA (JOSSY) Positive H (NEGATIVE) 11/24/20 11/25/20 11/25/20 Range/Units 14:41 05:40 05:40 WBC 7.25 (4.23-9.07) K/mm3 RBC 4.53 L (4.63-6.08) M/mm3 Hgb 14.1 (13.7-17.5) gm/dl Hct 40.8 (40.1-51.0) % MCV 90.1 (79.0-92.2) fl MCH 31.1 (25.7-32.2) pg MCHC 34.6 (32.2-35.5) g/dl RDW Std Deviation 37.4 (35.1-43.9) fL Plt Count 210 (163-337) K/mm3 MPV 9.7 (9.4-12.3) fl Neut % (Auto) 77.3 H (34.0-67.9) % Lymph % (Auto) 12.4 L (21.8-53.1) % [place] % (Auto) 9.8 (5.3-12.2) % Eos % (Auto) 0 L (0.8-7.0) Baso % (Auto) 0.1 (0.1-1.2) % Neut # (Auto) 5.60 H (1.78-5.38) K/mm3 Lymph # (Auto) 0.90 L (1.32-3.57) K/mm3 [place] # (Auto) 0.71 (0.30-0.82) K/mm3 Eos # (Auto) 0.00 L (0.04-0.54) K/mm3 Baso # (Auto) 0.01 (0.01-0.08) K/mm3 Manual Slide Review PT (9.7-12.0) SECONDS INR APTT (21.7-31.4) SECONDS D-Dimer, Quantitative (0.19-0.50) mg/L Sodium 136 (136-145) mEq/L Potassium 4.2 (3.5-5.1) mEq/L Chloride 101 (98-107) mEq/L Carbon Dioxide 27 (21-32) mEq/L Anion Gap 12.2 (5-15) BUN 19 H (7-18) mg/dL Creatinine 1.2 (0.7-1.3) mg/dL Est Cr Clr Drug Dosing 78.61 mL/min Estimated GFR (MDRD) > 60 (>60) mL/min BUN/Creatinine Ratio 15.8 (14-18) Glucose 144 H (74-106) mg/dL Lactic Acid (0.4-2.0) mmol/L Calcium 8.3 L (8.5-10.1) mg/dL Magnesium 1.7 L (1.8-2.4) mg/dl Ferritin (26-388) ng/ml Total Bilirubin 0.7 (0.2-1.0) mg/dL AST 36 (15-37) U/L ALT 27 (16-63) U/L Alkaline Phosphatase 60 (46-116) U/L Lactate Dehydrogenase (85-227) U/L Troponin I (0.00-0.056) ng/mL C-Reactive Protein 17.1 H* (<1.0) mg/dL Total Protein 7.3 (6.4-8.2) g/dl Albumin 2.9 L (3.4-5.0) g/dl Globulin 4.4 gm/dL Albumin/Globulin Ratio 0.7 L (1-2) Influenza Type A RNA (NEGATIVE) Influenza Type B RNA (NEGATIVE) SARS-CoV-2 RNA (JOSSY) (NEGATIVE) Med Orders - Current: Current Medications Acetaminophen (Tylenol) 650 mg PO Q4H PRN PRN Reason: Pain (Mild 1-3)/fever Albuterol/Ipratropium (Duoneb 3.0-0.5 Mg/3 Ml) 3 ml NEB Q4H PRN PRN Reason: Shortness Of Breath/wheezing Cholecalciferol (Vitamin D3) [address] [facility] Dexamethasone (Dexamethasone) [address] [facility] Last Admin: 11/24/20 18:29 Dose: 6 mg Documented by: Docusate Sodium (Colace) 100 mg PO BID PRN PRN Reason: Constipation Enoxaparin Sodium (Lovenox) [address] [facility] Last Admin: 11/24/20 18:28 Dose: 40 mg Documented by: Sodium Chloride (Normal Saline) 1,000 mls @ 125 mls/hr IV ASDIRECTED [facility] Last Admin: 11/25/20 05:19 Dose: 125 mls/hr Documented by: Ceftriaxone Sodium 2 gm/ (Sodium Chloride) 100 mls @ 200 mls/hr IV Q24H [facility] Last Admin: 11/24/20 18:28 Dose: 200 mls/hr Documented by: Levothyroxine Sodium (Levothyroxine) [address] [facility] Last Admin: 11/25/20 05:19 Dose: 75 mcg Documented by: Lisinopril (Prinivil) [address] [facility] Multivitamins (Thera) [address] [facility] Ondansetron HCl (Zofran Odt) 4 mg PO Q6H PRN PRN Reason: nausea, able to take PO Oxycodone HCl (Oxycodone) 5 mg PO Q4H PRN PRN Reason: Pain (moderate 4-6) Pantoprazole Sodium (Protonix) 40 mg PO DAILY@0700 [facility] Last Admin: 11/25/20 06:39 Dose: 40 mg Documented by: Simvastatin (Zocor) 20 mg PO BEDTIME [facility]ER[facility] Temazepam (Restoril) 15 mg PO BEDTIME PRN PRN Reason: Sleep Discontinued Medications Lactated Ringer's (Ringers, Lactated) 1,000 mls @ 150 mls/hr IV ASDIRECTED [facility] Last Admin: 11/24/20 14:24 Dose: 150 mls/hr Documented by: Ondansetron HCl (Zofran) 4 mg IVPUSH ONETIME ONE Stop: 11/24/20 14:20 Last Admin: 11/24/20 14:28 Dose: 4 mg Documented by: - Exam Quality Assessment: DVT Prophylaxis. No: Supplemental Oxygen General: Alert, Oriented, Cooperative, No Acute Distress HEENT: Pupils Equal, Pupils Reactive, EOMI, Mucous Membr. Moist/[place] Neck: Supple, Trachea Midline Lungs: Clear to Auscultation, Normal Respiratory Effort Cardiovascular: Regular Rate, Regular Rhythm GI/Abdominal Exam: Normal Bowel Sounds, Soft, Non-Tender, No Distention (Male) Exam: Deferred Back Exam: Normal Inspection, Full Range of Motion Extremities: Normal Inspection, No Pedal Edema Skin: Warm, Dry, Intact Neurological: No New Focal Deficit Psy/Mental Status: Alert, Normal Affect, Normal Mood Sepsis Event Note - Evaluation Sepsis Screening Result: No Definite Risk - Focused Exam Vital Signs: Vital Signs Temp Pulse Resp BP Pulse Ox 11/25/20 03:17 36.6 C 77 18 116/73 97 11/24/20 23:59 36.7 C 82 18 120/69 94 L 11/24/20 19:56 39.4 C H 106 H 16 106/60 93 L - Problem List & Annotations (1) Acute respiratory failure due to COVID-19 SNOMED Code(s): 780686199 Code(s): U07.1 - COVID-19; J96.00 - ACUTE RESPIRATORY FAILURE, UNSP W HYPOXIA OR HYPERCAPNIA Status: Acute Priority: High Current Visit: Yes (2) Pneumonia due to COVID-19 virus SNOMED Code(s): 821383409017187881 Code(s): U07.1 - COVID-19; J12.89 - OTHER VIRAL PNEUMONIA Status: Acute Priority: High Current Visit: Yes (3) Hypertension SNOMED Code(s): 28987292 Code(s): I10 - ESSENTIAL (PRIMARY) HYPERTENSION Status: Acute Current Visit: Yes Qualifiers: Hypertension type: essential hypertension Qualified Code(s): I10 - Essential (primary) hypertension (4) Hyponatremia SNOMED Code(s): 94921942 Code(s): E87.1 - HYPO-OSMOLALITY AND HYPONATREMIA Status: Acute Priority: High Current Visit: Yes - Problem List Review Problem List Initiated/Reviewed/Updated: Yes - My Orders Last 24 Hours: My Active Orders 11/24/20 16:06 Up ad Brenda [RC] Q8H VTE/DVT Education [RC] 1000 Vital Signs [RC] Q4H Acetaminophen [TylenoL] 650 mg PO Q4H PRN Albuterol/Ipratropium [DuoNeb 3.0-0.5 MG/3 ML] 3 ml NEB Q4H PRN Docusate Sodium [Colace] 100 mg PO BID PRN Ondansetron [Zofran ODT] 4 mg PO Q6H PRN Temazepam [Restoril] 15 mg PO BEDTIME PRN oxyCODONE 5 mg PO Q4H PRN Resuscitation Status Routine 11/24/20 16:07 Cardiac Monitoring [RC] CONTINUOUS Pulse Oximetry [RC] CONTINUOUS 11/24/20 16:12 RT Aerosol Therapy [RC] ASDIRECTED 11/24/20 16:15 Enoxaparin [Lovenox] 40 mg SUBCUT DAILY Sodium Chloride 0.9% [Normal Saline] 1,000 ml IV ASDIRECTED 11/24/20 16:30 Patient Status [ADT] Routine dexAMETHasone 6 mg IV DAILY 11/24/20 Dinner Heart Healthy Diet [DIET] cefTRIAXone [Rocephin] 2 gm Sodium Chloride 0.9% [Normal Saline] 100 ml IV Q24H 11/25/20 06:00 Levothyroxine 75 mcg PO ACBRK 11/25/20 07:00 Pantoprazole [ProTONIX] 40 mg PO DAILY@0700 11/25/20 09:00 Cholecalciferol (Vitamin D3) [Vitamin D3] 25 mcg PO DAILY Multivitamins,Therapeutic [Thera] 1 each PO DAILY lisinopriL [Prinivil] 10 mg PO DAILY 11/25/20 21:00 Simvastatin [Zocor] 20 mg PO BEDTIME - Plan Plan:: The patient is a 55-year-old gentleman who has been ill for at least 2 weeks. The patient is currently outside the window for consideration of remdesivir for his COVID-19 infection. He will be admitted as an inpatient. The patient will also be kept on oxygen support to help keep his oxygen saturations between 90 and 92%. I have also ordered that the patient receive 6 mg of dexamethasone IV daily. The patient will also have IV normal saline at 125 mL/h. This should help to correct his metabolic imbalance. Patient will also because of his hypertension have a heart healthy diet. He is also been ordered to continue his home medications. The patient will also be anticoagulated with Lovenox at 40 mg subcutaneous daily. I have also ordered repeat laboratory studies in the morning. I have also ordered a magnesium level says the patient does have a history of hypomagnesemia. The patient also has been encouraged to ambulate. We will follow up with the blood cultures that have been previously obtained. 11/25/2020 The patient is a 55-year-old gentleman had apparent COVID-19 pneumonia. He is currently being treated with dexamethasone and this will be continued. The patient will be transitioned to oral dexamethasone prior to discharge. He is also on normal saline at 125 mL/h and this will be continued. The patient's electrolyte imbalance has improved. The patient does have a history of hypomagnesemia and this was found to be low. His magnesium will be replaced. Patient has been encouraged to ambulate. He will also have DVT prophylaxis continued with Lovenox 40 mg subcutaneous daily. The patient should be appropriate for discharge in 1 to 2 days.
[2020-11-25] MEDS: Cholecalciferol (Vitamin D3) 25 MCG Tab PO SCH (08:18)
[2020-11-25] MEDS: Lisinopril 10 MG Tab PO SCH (08:18)
[2020-11-25] MEDS: Multivitamins,Therapeutic Tab PO SCH (08:19)
[2020-11-25] MEDS: Dexamethasone 4 MG/ML SDV IV SCH (09:30)
[2020-11-25] MEDS: Enoxaparin 40 MG/0.4 ML Syringe SUBCUT SCH (09:30)
[2020-11-25] MEDS ORDERED: Magnesium Sulfate/Water 2 GM/50 ML BAG IV ONE (11:00)
[2020-11-25] MEDS: cefTRIAXone 2 GM in Sodium Chloride 0.9% 100 ML IV SCH (17:08)
[2020-11-25] MEDS: Simvastatin 20 MG Tab PO SCH (20:10)
[2020-11-26] MEDS: Pantoprazole 40 MG Tab.CR PO SCH (06:43)
[2020-11-26] MEDS: Levothyroxine 75 MCG Tab PO SCH (06:43)
[2020-11-26] MEDS: Sodium Chloride 0.9% 1,000 ML IV SCH (06:43)
[2020-11-26] MEDS: Enoxaparin 40 MG/0.4 ML Syringe SUBCUT SCH (10:00)
[2020-11-26] MEDS: Multivitamins,Therapeutic Tab PO SCH (10:01)
[2020-11-26] MEDS: Lisinopril 10 MG Tab PO SCH (10:01)
[2020-11-26] MEDS: Cholecalciferol (Vitamin D3) 25 MCG Tab PO SCH (10:02)
[2020-11-26] MEDS: Dexamethasone 4 MG/ML SDV IV SCH (10:06)
--- NOTE | 2020-11-26 11:15 | PCM.PN ---
- General Info Date of Service: 11/26/20 Admission Dx/Problem (Free Text): Admission Diagnosis/Problem Admission Diagnosis/Problem Hypoxia, COVID-19 pneumonia Subjective Update: The patient is an otherwise healthy 55-year-old gentleman who was admitted on November 25, 2020 secondary to Covid associated pneumonia. The patient has been somewhat hypoxic but has not required oxygen. The patient says that he had been diagnosed with COVID-19 approximately 2 weeks ago and therefore was outside the window for antiviral treatment. Today the patient says that he feels much better. He has been able to tolerate diet. He has no other complaints today. The patient has denied any pain. Functional Status: Reports: Pain Controlled, Tolerating Diet - Review of Systems General: Reports: No Symptoms HEENT: Reports: No Symptoms Pulmonary: Reports: Shortness of Breath Cardiovascular: Reports: No Symptoms Gastrointestinal: Reports: No Symptoms Genitourinary: Reports: No Symptoms Musculoskeletal: Reports: No Symptoms Skin: Reports: No Symptoms Neurological: Reports: No Symptoms Psychiatric: Reports: No Symptoms - Patient Data Vitals - Most Recent: Last Vital Signs Temp 36.7 C 11/26/20 03:45 Pulse 101 H 11/26/20 03:45 Resp 14 11/25/20 22:38 BP 110/71 11/26/20 10:01 Pulse Ox 93 L 11/26/20 03:45 Weight - Most Recent: 90.855 kg I&O - Last 24 Hours: Intake & Output 11/25/20 11/26/20 11/26/20 22:59 06:59 14:59 Intake Total 2995 971 300 Output Total 875 2451 Balance 2120 -1480 300 Lab Results Last 24 Hours: Laboratory Results - last 24 hr 11/26/20 11/26/20 Range/Units 04:35 04:35 WBC 15.34 H (4.23-9.07) K/mm3 RBC 4.22 L (4.63-6.08) M/mm3 Hgb 13.3 L (13.7-17.5) gm/dl Hct 37.4 L (40.1-51.0) % MCV 88.6 (79.0-92.2) fl MCH 31.5 (25.7-32.2) pg MCHC 35.6 H (32.2-35.5) g/dl RDW Std Deviation 37.5 (35.1-43.9) fL Plt Count 235 (163-337) K/mm3 MPV 9.6 (9.4-12.3) fl Neut % (Auto) 86.8 H (34.0-67.9) % Lymph % (Auto) 5.9 L (21.8-53.1) % [place] % (Auto) 7.1 (5.3-12.2) % Eos % (Auto) 0.1 L (0.8-7.0) Baso % (Auto) 0.1 (0.1-1.2) % Neut # (Auto) 13.32 H (1.78-5.38) K/mm3 Lymph # (Auto) 0.91 L (1.32-3.57) K/mm3 [place] # (Auto) 1.09 H (0.30-0.82) K/mm3 Eos # (Auto) 0.01 L (0.04-0.54) K/mm3 Baso # (Auto) 0.01 (0.01-0.08) K/mm3 Manual Slide Review Abnormal smear Sodium 138 (136-145) mEq/L Potassium 4.4 (3.5-5.1) mEq/L Chloride 106 (98-107) mEq/L Carbon Dioxide 25 (21-32) mEq/L Anion Gap 11.4 (5-15) BUN 15 (7-18) mg/dL Creatinine 1.0 (0.7-1.3) mg/dL Est Cr Clr Drug Dosing 94.33 mL/min Estimated GFR (MDRD) > 60 (>60) mL/min BUN/Creatinine Ratio 15.0 (14-18) Glucose 127 H (74-106) mg/dL Calcium 8.0 L (8.5-10.1) mg/dL Magnesium 2.3 (1.8-2.4) mg/dl Total Bilirubin 0.5 (0.2-1.0) mg/dL AST 27 (15-37) U/L ALT 31 (16-63) U/L Alkaline Phosphatase 58 (46-116) U/L C-Reactive Protein 10.1 H* (<1.0) mg/dL Total Protein 6.6 (6.4-8.2) g/dl Albumin 2.7 L (3.4-5.0) g/dl Globulin 3.9 gm/dL Albumin/Globulin Ratio 0.7 L (1-2) Eric Results Last 24 Hours: Microbiology 11/24/20 14:32 Aerobic Blood Culture - Preliminary Blood - Venous - Lab Draw NO GROWTH AFTER 1 DAY Anaerobic Blood Culture - Preliminary NO GROWTH AFTER 1 DAY 11/24/20 14:41 Aerobic Blood Culture - Preliminary Blood - Venous NO GROWTH AFTER 1 DAY Anaerobic Blood Culture - Preliminary NO GROWTH AFTER 1 DAY Med Orders - Current: Current Medications Acetaminophen (Tylenol) 650 mg PO Q4H PRN PRN Reason: Pain (Mild 1-3)/fever Albuterol/Ipratropium (Duoneb 3.0-0.5 Mg/3 Ml) 3 ml NEB Q4H PRN PRN Reason: Shortness Of Breath/wheezing Cholecalciferol (Vitamin D3) 25 mcg PO DAILY [facility] Last Admin: 11/26/20 10:02 Dose: 25 mcg Documented by: Dexamethasone (Decadron) 6 mg IV DAILY [facility] Stop: 12/03/20 09:01 Last Admin: 11/26/20 10:06 Dose: 6 mg Documented by: Docusate Sodium (Colace) 100 mg PO BID PRN PRN Reason: Constipation Enoxaparin Sodium (Lovenox) 40 mg SUBCUT DAILY [facility] Last Admin: 11/26/20 10:00 Dose: 40 mg Documented by: Sodium Chloride (Normal Saline) 1,000 mls @ 125 mls/hr IV ASDIRECTED [facility] Last Admin: 11/26/20 06:43 Dose: 125 mls/hr Documented by: Ceftriaxone Sodium 2 gm/ (Sodium Chloride) 100 mls @ 200 mls/hr IV Q24H [facility] Last Admin: 11/25/20 17:08 Dose: 200 mls/hr Documented by: Levothyroxine Sodium (Levothyroxine) 75 mcg PO ACBRK [facility] Last Admin: 11/26/20 06:43 Dose: 75 mcg Documented by: Lisinopril (Prinivil) 10 mg PO DAILY [facility] Last Admin: 11/26/20 10:01 Dose: 10 mg Documented by: Multivitamins (Thera) 1 each PO DAILY [facility] Last Admin: 11/26/20 10:01 Dose: 1 each Documented by: Ondansetron HCl (Zofran Odt) 4 mg PO Q6H PRN PRN Reason: nausea, able to take PO Oxycodone HCl (Oxycodone) 5 mg PO Q4H PRN PRN Reason: Pain (moderate 4-6) Pantoprazole Sodium (Protonix) 40 mg PO DAILY@0700 [facility] Last Admin: 11/26/20 06:43 Dose: 40 mg Documented by: Simvastatin (Zocor) 20 mg PO BEDTIME [facility] Last Admin: 11/25/20 20:10 Dose: 20 mg Documented by: Temazepam (Restoril) 15 mg PO BEDTIME PRN PRN Reason: Sleep Discontinued Medications Dexamethasone (Dexamethasone) 6 mg IV DAILY [facility] Last Admin: 11/24/20 18:29 Dose: 6 mg Documented by: Lactated Ringer's (Ringers, Lactated) 1,000 mls @ 150 mls/hr IV ASDIRECTED [facility] Last Admin: 11/24/20 14:24 Dose: 150 mls/hr Documented by: Magnesium Sulfate (Magnesium Sulfate In Water Premix) 2 gm in 50 mls @ 25 mls/hr IV ONETIME ONE Stop: 11/25/20 12:59 Last Admin: 11/25/20 11:47 Dose: 25 mls/hr Documented by: Ondansetron HCl (Zofran) 4 mg IVPUSH ONETIME ONE Stop: 11/24/20 14:20 Last Admin: 11/24/20 14:28 Dose: 4 mg Documented by: - Exam Quality Assessment: DVT Prophylaxis. No: Supplemental Oxygen General: Alert, Oriented, Cooperative, No Acute Distress HEENT: Pupils Equal, Pupils Reactive, EOMI, Mucous Membr. Moist/[place] Neck: Supple, Trachea Midline Lungs: Normal Respiratory Effort, Rales (Predominantly right side) Cardiovascular: Regular Rate, Regular Rhythm GI/Abdominal Exam: Normal Bowel Sounds, Soft, Non-Tender, No Distention. No: Guarding, Rebound (Male) Exam: Deferred Back Exam: Normal Inspection, Full Range of Motion Extremities: Normal Inspection, No Pedal Edema Skin: Warm, Dry, Intact Neurological: No New Focal Deficit Psy/Mental Status: Alert, Normal Affect, Normal Mood Sepsis Event Note - Evaluation Sepsis Screening Result: Sepsis Risk - Focused Exam Vital Signs: Vital Signs Temp Pulse BP Pulse Ox 11/26/20 10:01 110/71 11/26/20 03:45 36.7 C 101 H 108/70 93 L - Problem List & Annotations (1) Acute respiratory failure due to COVID-19 SNOMED Code(s): 706807667 Code(s): U07.1 - COVID-19; J96.00 - ACUTE RESPIRATORY FAILURE, UNSP W HYPOXIA OR HYPERCAPNIA Status: Resolved Priority: High Current Visit: Yes (2) Pneumonia due to COVID-19 virus SNOMED Code(s): 779522857911406319 Code(s): U07.1 - COVID-19; J12.89 - OTHER VIRAL PNEUMONIA Status: Acute Priority: High Current Visit: Yes (3) Hypertension SNOMED Code(s): 16552713 Code(s): I10 - ESSENTIAL (PRIMARY) HYPERTENSION Status: Acute Current Visit: Yes Qualifiers: Hypertension type: essential hypertension Qualified Code(s): I10 - Essential (primary) hypertension (4) Hyponatremia SNOMED Code(s): 88178228 Code(s): E87.1 - HYPO-OSMOLALITY AND HYPONATREMIA Status: Resolved Priority: High Current Visit: Yes - Problem List Review Problem List Initiated/Reviewed/Updated: Yes - My Orders Last 24 Hours: My Active Orders 11/25/20 21:00 Simvastatin [Zocor] 20 mg PO BEDTIME - Plan Plan:: The patient is a 55-year-old gentleman who has been ill for at least 2 weeks. The patient is currently outside the window for consideration of remdesivir for his COVID-19 infection. He will be admitted as an inpatient. The patient will also be kept on oxygen support to help keep his oxygen saturations between 90 and 92%. I have also ordered that the patient receive 6 mg of dexamethasone IV daily. The patient will also have IV normal saline at 125 mL/h. This should help to correct his metabolic imbalance. Patient will also because of his hypertension have a heart healthy diet. He is also been ordered to continue his home medications. The patient will also be anticoagulated with Lovenox at 40 mg subcutaneous daily. I have also ordered repeat laboratory studies in the morning. I have also ordered a magnesium level says the patient does have a history of hypomagnesemia. The patient also has been encouraged to ambulate. We will follow up with the blood cultures that have been previously obtained. 11/25/2020 The patient is a 55-year-old gentleman had apparent COVID-19 pneumonia. He is currently being treated with dexamethasone and this will be continued. The patient will be transitioned to oral dexamethasone prior to discharge. He is also on normal saline at 125 mL/h and this will be continued. The patient's electrolyte imbalance has improved. The patient does have a history of hypo magnesemia and this was found to be low. His magnesium will be replaced. Patient has been encouraged to ambulate. He will also have DVT prophylaxis continued with Lovenox 40 mg subcutaneous daily. The patient should be appropriate for discharge in 1 to 2 days. 11/26/2020 Overall, the patient is doing much better today. Does have leukocytosis which has been associated with his steroids. The patient will be continued on dexamethasone 6 mg IV daily and will be transitioned to oral steroids starting tomorrow. Patient is also on normal saline and this will be discontinued as the patient has been eating adequately. Repeat chest x-ray has also been ordered for tomorrow. Repeat laboratory studies have been ordered. Electrolytes will be replaced as needed. DVT prophylaxis will continue with the use of Lovenox 40 mg subcu daily. The patient should be appropriate for discharge tomorrow.
[2020-11-26] MEDS: cefTRIAXone 2 GM in Sodium Chloride 0.9% 100 ML IV SCH (16:19)
[2020-11-26] MEDS: Simvastatin 20 MG Tab PO SCH (20:33)
[2020-11-27] MEDS: Levothyroxine 75 MCG Tab PO SCH (06:13)
[2020-11-27] MEDS: Pantoprazole 40 MG Tab.CR PO SCH (06:13)
[2020-11-27] MEDS: Enoxaparin 40 MG/0.4 ML Syringe SUBCUT SCH (08:05)
[2020-11-27] MEDS: Cholecalciferol (Vitamin D3) 25 MCG Tab PO SCH (08:06)
[2020-11-27] MEDS: Multivitamins,Therapeutic Tab PO SCH (08:06)
[2020-11-27] MEDS: Lisinopril 10 MG Tab PO SCH (08:06)
[2020-11-27] MEDS ORDERED: Dexamethasone 4 MG Tab PO SCH (09:00)
--- NOTE | 2020-11-27 09:16 | CR ---
Chest: Portable view of the chest was obtained. Comparison: Prior chest x-ray of 11/24/20. Findings: Previous findings within the lungs are stable from previous exam. Heart size appears within normal limits for portable technique. Upper mediastinum is normal. Bony structures are grossly intact. Impression: 1. Stable chest x-ray from previous study. Diagnostic code #3
--- NOTE | 2020-11-27 10:11 | PCM.DCSUM1 ---
Discharge Summary - Hospital Course HPI Initial Comments: The patient is a 55-year-old gentleman who has presented to the emergency department with complaint of fatigue, weakness along with fever and chills for the past 2 weeks. In the emergency department the patient had a fever of 103.5 Fahrenheit. The patient also says that he has had nausea associated with his symptoms. The patient had been evaluated as an outpatient at [facility] and they had read recommended that he go to the emergency department for further evaluation. Also reports that he has had fever and chills to accompany this and he says that his symptoms have been getting worse. The patient has a history of hypertension, hypothyroidism and he has been taking medication for these. The patient does not use tobacco. No alcohol use. The patient has not been exposed to a known source of infection. Diagnosis: Stroke: No - Discharge Data Discharge Date: 11/27/20 (Admit date: 11/24/20) Discharge Disposition: Home, Self-Care 01 Condition: Good - Referral to Home Health Primary Care Physician: Stalin Rojo MD - Discharge Diagnosis/Problem(s) (1) Pneumonia due to COVID-19 virus SNOMED Code(s): 578169089768469649 ICD Code: U07.1 - COVID-19; J12.89 - OTHER VIRAL PNEUMONIA Status: Acute Priority: High Current Visit: Yes (2) Acute respiratory failure due to COVID-19 SNOMED Code(s): 258726841 ICD Code: U07.1 - COVID-19; J96.00 - ACUTE RESPIRATORY FAILURE, UNSP W HYPOXIA OR HYPERCAPNIA Status: Resolved Priority: High Current Visit: Yes (3) Hypertension SNOMED Code(s): 47448616 ICD Code: I10 - ESSENTIAL (PRIMARY) HYPERTENSION Status: Chronic Priority: Low Current Visit: No Qualifiers: Hypertension type: essential hypertension Qualified Code(s): I10 - Essential (primary) hypertension (4) Hyponatremia SNOMED Code(s): 41727783 ICD Code: E87.1 - HYPO-OSMOLALITY AND HYPONATREMIA Status: Resolved Priority: High Current Visit: Yes (5) Hypomagnesemia SNOMED Code(s): 179902913 ICD Code: E83.42 - HYPOMAGNESEMIA Status: Resolved Priority: High Current Visit: Yes - Patient Summary/Data Labs Pending at D/C: None Recommended Follow-up Testing/Procedures: Follow-up with primary care provider within 7-10 days of discharge, sooner if needed. Hospital Course: Kirit was admitted to the hospital for treatment of his continuing COVID-19 infection and electrolyte abnormalities. Also noted to be in acute renal injury. He was given IV fluids and his magnesium was supplemented. He did not require any oxygen supplementation and his saturations did improve throughout his stay. He was started on daily 6 mg daily dexamethasone. He was also given Rocephin. This will be discontinued prior to discharge as the patient's lung sounds are good and he feels good. Chest x-ray was obtained prior to discharge which is stable. Patient was ambulating about the room. Patient was given an incentive spirometer and instructed to continue utilizing that for 1 to 2 days after discharge. He was outside the window for remdesivir on arrival and his dexamethasone was stopped at discharge along with his Rocephin. He was directed follow-up with his primary care provider within 7 to 10 days of discharge, sooner if needed. All home medications were continued. No new medications. He was discharged home today. He was instructed to contact his primary care provider or return to the emergency room should symptoms return or worsen. - Patient Instructions Diet: Heart Healthy Diet Activity: As Tolerated Driving: Do Not Drive Showering/Bathing: May Shower Notify Provider of: Fever, Increased Pain, Nausea and/or Vomiting Other/Special Instructions: Follow-up with primary care provider within 7-10 days of discharge, sooner if needed. You completed your COVID-19 treatment while here. No new medications for this. Resume home medications as directed. Continue to utilize your incenive spirometry (blue/clear device you inhale through) as directed for the next 1-2 weeks. Should symptoms return or worsen contact your primary care provider or return to the Emergency Department. - Discharge Plan *PRESCRIPTION DRUG MONITORING PROGRAM REVIEWED*: No *COPY OF PRESCRIPTION DRUG MONITORING REPORT IN PATIENT BERYL: No Home Medications: Home Meds Cyanocobalamin (Vitamin B-12) [Vitamin B-12] 1,000 mcg PO DAILY 03/05/18 [History] Lisinopril 10 mg PO DAILY 03/05/18 [History] Multivitamin [Multivitamins] 1 tab PO DAILY 03/05/18 [History] Pantoprazole Sodium 40 mg PO DAILY 03/05/18 [History] Pravastatin Sodium 20 mg PO DAILY 03/05/18 [History] Ubidecarenone [Co Q-10] 200 mg PO DAILY 03/05/18 [History] Cholecalciferol (Vitamin D3) [Vitamin D3] 1,000 units PO DAILY 11/24/20 [History] Fexofenadine HCl [Sole Allergy] 1 tab PO DAILY 11/24/20 [History] Levothyroxine 88 mcg PO DAILY 11/24/20 [History] Oxygen Therapy Mode: Room Air Patient Handouts: COVID-19 Frequently Asked Questions, COVID-19: How to Protect Yourself and Others - CDC, Prevent the Spread of COVID-19 if You Are Sick - CDC, Sepsis, Self Care, Adult Referrals: Stalin Rojo MD [Primary Care Provider] - 12/06/20 11:30 am (Please follow up with Dr. Rojo on Dec 06 at 11:30.) - Discharge Summary/Plan Comment DC Time >30 min.: Yes (45 mins ) - General Info Date of Service: 11/27/20 Admission Dx/Problem (Free Text: Admission Diagnosis/Problem Admission Diagnosis/Problem Hypoxia, COVID-19 pneumonia Functional Status: Reports: Pain Controlled, Tolerating Diet, Ambulating, Urinating, Incentive Spirometry. Denies: New Symptoms - Review of Systems General: Reports: No Symptoms. Denies: Fever, Weakness, Fatigue, Malaise, Chills HEENT: Reports: No Symptoms. Denies: Headaches, Sore Throat Pulmonary: Reports: No Symptoms. Denies: Shortness of Breath, Cough, Sputum Cardiovascular: Reports: No Symptoms. Denies: Chest Pain, Dyspnea on Exertion Gastrointestinal: Reports: No Symptoms. Denies: Abdominal Pain, Constipation, Diarrhea, Nausea, Vomiting Genitourinary: Reports: No Symptoms. Denies: Pain Musculoskeletal: Reports: No Symptoms Skin: Reports: No Symptoms. Denies: Cyanosis Neurological: Reports: No Symptoms. Denies: Confusion, Difficulty Walking, Gait Disturbance Psychiatric: Reports: No Symptoms - Patient Data Vitals - Most Recent: Last Vital Signs Temp 97.3 F 11/27/20 08:33 Pulse 82 11/27/20 08:33 Resp 16 11/27/20 08:33 BP 108/70 11/27/20 08:33 Pulse Ox 99 11/27/20 08:33 Weight - Most Recent: 200 lb I&O - Last 24 hours: Intake & Output 11/26/20 11/27/20 11/27/20 22:59 06:59 14:59 Intake Total 2151 800 120 Output Total 875 1050 Balance 1276 -250 120 Lab Results - Last 24 hrs: Laboratory Results - last 24 hr 11/27/20 11/27/20 Range/Units 05:44 05:44 WBC 11.90 H (4.23-9.07) K/mm3 RBC 4.19 L (4.63-6.08) M/mm3 Hgb 12.8 L (13.7-17.5) gm/dl Hct 38.2 L (40.1-51.0) % MCV 91.2 (79.0-92.2) fl MCH 30.5 (25.7-32.2) pg MCHC 33.5 (32.2-35.5) g/dl RDW Std Deviation 38.0 (35.1-43.9) fL Plt Count 282 (163-337) K/mm3 MPV 10.0 (9.4-12.3) fl Neut % (Auto) 82.9 H (34.0-67.9) % Lymph % (Auto) 10.0 L (21.8-53.1) % [place] % (Auto) 6.8 (5.3-12.2) % Eos % (Auto) 0 L (0.8-7.0) Baso % (Auto) 0.1 (0.1-1.2) % Neut # (Auto) 9.87 H (1.78-5.38) K/mm3 Lymph # (Auto) 1.19 L (1.32-3.57) K/mm3 [place] # (Auto) 0.81 (0.30-0.82) K/mm3 Eos # (Auto) 0.00 L (0.04-0.54) K/mm3 Baso # (Auto) 0.01 (0.01-0.08) K/mm3 Manual Slide Review Normal smear Sodium 139 (136-145) mEq/L Potassium 4.1 (3.5-5.1) mEq/L Chloride 107 (98-107) mEq/L Carbon Dioxide 24 (21-32) mEq/L Anion Gap 12.1 (5-15) BUN 13 (7-18) mg/dL Creatinine 0.8 (0.7-1.3) mg/dL Est Cr Clr Drug Dosing 117.91 mL/min Estimated GFR (MDRD) > 60 (>60) mL/min BUN/Creatinine Ratio 16.3 (14-18) Glucose 102 (74-106) mg/dL Calcium 8.1 L (8.5-10.1) mg/dL Magnesium 2.2 (1.8-2.4) mg/dl C-Reactive Protein 4.6 H* (<1.0) mg/dL JAMEY Results - Last 24 hrs: Microbiology 11/24/20 14:32 Aerobic Blood Culture - Preliminary Blood - Venous - Lab Draw NO GROWTH AFTER 2 DAYS Anaerobic Blood Culture - Preliminary NO GROWTH AFTER 2 DAYS 11/24/20 14:41 Aerobic Blood Culture - Preliminary Blood - Venous NO GROWTH AFTER 2 DAYS Anaerobic Blood Culture - Preliminary NO GROWTH AFTER 2 DAYS Med Orders - Current: Current Medications Acetaminophen (Tylenol) 650 mg PO Q4H PRN PRN Reason: Pain (Mild 1-3)/fever Albuterol/Ipratropium (Duoneb 3.0-0.5 Mg/3 Ml) 3 ml NEB Q4H PRN PRN Reason: Shortness Of Breath/wheezing Cholecalciferol (Vitamin D3) 25 mcg PO DAILY [facility] Last Admin: 11/27/20 08:06 Dose: 25 mcg Documented by: Dexamethasone (Dexamethasone) 6 mg PO DAILY [facility] Last Admin: 11/27/20 08:05 Dose: 6 mg Documented by: Docusate Sodium (Colace) 100 mg PO BID PRN PRN Reason: Constipation Enoxaparin Sodium (Lovenox) 40 mg SUBCUT DAILY [facility] Last Admin: 11/27/20 08:05 Dose: 40 mg Documented by: Ceftriaxone Sodium 2 gm/ (Sodium Chloride) 100 mls @ 200 mls/hr IV Q24H [facility] Last Admin: 11/26/20 16:19 Dose: 200 mls/hr Documented by: Levothyroxine Sodium (Levothyroxine) 75 mcg PO ACBRK [facility] Last Admin: 11/27/20 06:13 Dose: 75 mcg Documented by: Lisinopril (Prinivil) 10 mg PO DAILY [facility] Last Admin: 11/27/20 08:06 Dose: 10 mg Documented by: Multivitamins (Thera) 1 each PO DAILY [facility] Last Admin: 11/27/20 08:06 Dose: 1 each Documented by: Ondansetron HCl (Zofran Odt) 4 mg PO Q6H PRN PRN Reason: nausea, able to take PO Oxycodone HCl (Oxycodone) 5 mg PO Q4H PRN PRN Reason: Pain (moderate 4-6) Pantoprazole Sodium (Protonix) 40 mg PO DAILY@0700 [facility] Last Admin: 11/27/20 06:13 Dose: 40 mg Documented by: Simvastatin (Zocor) 20 mg PO BEDTIME [facility] Last Admin: 11/26/20 20:33 Dose: 20 mg Documented by: Temazepam (Restoril) 15 mg PO BEDTIME PRN PRN Reason: Sleep Discontinued Medications Dexamethasone (Dexamethasone) 6 mg IV DAILY [facility] Last Admin: 11/24/20 18:29 Dose: 6 mg Documented by: Dexamethasone (Decadron) 6 mg IV DAILY [facility] Stop: 12/03/20 09:01 Last Admin: 11/26/20 10:06 Dose: 6 mg Documented by: Lactated Ringer's (Ringers, Lactated) 1,000 mls @ 150 mls/hr IV ASDIRECTED [facility] Last Admin: 11/24/20 14:24 Dose: 150 mls/hr Documented by: Sodium Chloride (Normal Saline) 1,000 mls @ 125 mls/hr IV ASDIRECTED [facility] Last Admin: 11/26/20 06:43 Dose: 125 mls/hr Documented by: Magnesium Sulfate (Magnesium Sulfate In Water Premix) 2 gm in 50 mls @ 25 mls/hr IV ONETIME ONE Stop: 11/25/20 12:59 Last Admin: 11/25/20 11:47 Dose: 25 mls/hr Documented by: Ondansetron HCl (Zofran) 4 mg IVPUSH ONETIME ONE Stop: 11/24/20 14:20 Last Admin: 11/24/20 14:28 Dose: 4 mg Documented by: - Exam Quality Assessment: Reports: DVT Prophylaxis. Denies: Supplemental Oxygen, Urine Catheter General: Reports: Alert, Oriented, Cooperative, No Acute Distress HEENT: Reports: Pupils Equal, Pupils Reactive, Mucous Membr. Moist/[place]ck: Reports: Supple, Trachea Midline Lungs: Reports: Clear to Auscultation, Normal Respiratory Effort, Decreased Breath Sounds Cardiovascular: Reports: Regular Rate, Regular Rhythm GI/Abdominal Exam: Normal Bowel Sounds, Soft, Non-Tender, No Distention (Male) Exam: Deferred Rectal (Males) Exam: Deferred Back Exam: Reports: Normal Inspection, Full Range of Motion Extremities: Normal Inspection, Normal Range of Motion, Non-Tender, No Pedal Edema Skin: Reports: Warm, Dry, Intact Neurological: Reports: No New Focal Deficit Psy/Mental Status: Reports: Alert, Normal Affect, Normal Mood
== END 2020-11-27 13:58 | disposition home or self-care (01) | DRG 137 ==
LOC: JD.ED 13:38 → JD.MS 15:56
PROVIDERS: ADMIT Internal Medicine; ATTEND Internal Medicine
PROC: XW033E5 Introduction of Remdesivir Anti-infective into Peripheral Vein, Percutaneous Approach, New Technology Group 5 (ICD-10-PCS; principal; 2020-11-24)
PROC: 8E0ZXY6 Isolation (ICD-10-PCS; 2020-11-24)
DX: U07.1 COVID-19 (principal); J12.89 Other viral pneumonia; J96.00 Acute respiratory failure, unspecified whether with hypoxia or hypercapnia; I10 Essential (primary) hypertension; E87.1 Hypo-osmolality and hyponatremia; E83.42 Hypomagnesemia; N17.9 Acute kidney failure, unspecified; E03.9 Hypothyroidism, unspecified; E78.00 Pure hypercholesterolemia, unspecified; K21.9 Gastro-esophageal reflux disease without esophagitis; Z98.49 Cataract extraction status, unspecified eye; Z79.890 Hormone replacement therapy; Z79.899 Other long term (current) drug therapy
CPT/HCPCS: 0240U; 36415; 71045; 71045-26; 80048; 80053; 82728; 83605; 83615; 83735; 84484; 85025; 85379; 85610; 85730; 86140; 87040; 94762; 99284; A9270-GY; J0696; J1100; J1650; J2405; J3475; J7030; J7050; J7120; J8540